=== PATIENT | female | born 1955 | race Caucasian/White ===

== ENCOUNTER 2024-07-05 17:15 | Inpatient (IN) ==
[2024-07-05] MEDS: cefTRIAXone 1 GM VIAL IV ONE (17:57)
[2024-07-05] MEDS: 0.9 % SODIUM CHLORIDE 1,000 ML IV ONE ×2 (17:57→20:31)
[2024-07-05 18:58] LABS: Basophils # (Auto) 0.03 K/mcL (0.00-0.30); Basophils % (Auto) 0.4 % (0.0-2.0); Eosinophils # (Auto) 0.25 K/mcL (0.00-0.70); Eosinophils % (Auto) 3.5 % (0.0-7.0); Hemoglobin 10.6 g/dL (11.2-15.7); Lymphocytes # (Auto) 1.32 K/mcL (1.50-4.80); Lymphocytes % (Auto) 18.4 % (15.5-49.0); Mean Cell Volume 105.1 fL (80.0-100.0); Mean Corpuscular HGB Conc 32.1 g/dL (31.0-36.0); Mean Platelet Volume 13.4 fL (8.8-12.5); Monocytes # (Auto) 0.53 K/mcL (0.10-0.90); Monocytes % (Auto) 7.4 % (1.0-12.0); Neutrophils % (Auto) 70.2 % (38.0-78.0); Platelet Count 225 K/mcL (140-440); RBC 3.14 M/mcL (3.59-5.38); WBC 7.2 K/mcL (4.5-11.0)
[2024-07-05] MEDS: NOREPINEPHRINE 250 ML IV SCH (19:19)
[2024-07-05] MEDS: 0.9 % SODIUM CHLORIDE 250 ML IV SCH (19:21)
[2024-07-05 19:55] LABS: ALT/SGPT 22 U/L (<40); AST/SGOT 26 U/L (<32); Albumin 3.2 gm/dL (3.2-5.2); Albumin/Globulin Ratio 1.2 (1.0-2.3); Alkaline Phosphatase 87 U/L (39-117); Bilirubin,Total < 0.2 mg/dL (0.1-1.0); Blood Urea Nitrogen 63 mg/dL (8-23); Calcium 9.2 mg/dL (8.6-10.4); Carbon Dioxide 12 mmol/L (22-30); Chloride 106 mmol/L (96-108); Globulin 2.6 gm/dL (2.2-3.7); Glomerular Filtration Rate 9; Glucose 112 mg/dL (70-105); Sodium 135 mmol/L (133-145); Thyroid Stimulating Hormone 2.39 uIU/mL (0.27-5.01)
[2024-07-05 21:15] LABS: Appearance,Urine Clear (Clear); Bacteria,Urine Few /hpf (0); Bilirubin,Urine Negative (Negative); Calcium Oxalate Crystals,Urine Mod /hpf; Color,Urine Yellow; Glucose,Urine (UA) Negative (Negative); Ketones,Urine Trace mg/dL (Negative); Leukocyte Esterase,Urine Negative /uL (Negative); Nitrate,Urine Negative (Negative); Protein,Urine 30 mg/dL (Negative); Urine Blood Negative ery/mcL (Negative); Urine RBC 0 /hpf (0-3); Urine Squamous Epithelial Cell 8 /hpf (0-4); Urine WBC 2 /hpf (0-4); Urobilinogen,Urine Normal
[2024-07-05 21:45] LABS: ALT/SGPT 23 U/L (<40); AST/SGOT 26 U/L (<32); Albumin 3.2 gm/dL (3.2-5.2); Albumin/Globulin Ratio 1.3 (1.0-2.3); Alkaline Phosphatase 86 U/L (39-117); Bilirubin,Total < 0.2 mg/dL (0.1-1.0); Blood Urea Nitrogen 64 mg/dL (8-23); Calcium 8.7 mg/dL (8.6-10.4); Carbon Dioxide 13 mmol/L (22-30); Chloride 106 mmol/L (96-108); Globulin 2.5 gm/dL (2.2-3.7); Glomerular Filtration Rate 9; Glucose 128 mg/dL (70-105); Potassium 4.2 mmol/L (3.3-5.1); Sodium 136 mmol/L (133-145)
[2024-07-05 22:18] LABS: Free T4 (Free Thyroxine) 0.74 ng/dL (0.93-1.70)
[2024-07-06] MEDS ORDERED: ACETAMINOPHEN 325 MG TABLET PO PRN (00:39)
[2024-07-06] MEDS: SODIUM BICARBONATE VIAL 150 MEQ in WATER FOR INJECTION,STERILE 850 ML IV SCH ×3 (01:25→15:15)
[2024-07-06] MEDS: 0.9 % SODIUM CHLORIDE 10 ML SYRINGE IV SCH (05:11)
[2024-07-06 06:09] LABS: Albumin 3.3 gm/dL (3.2-5.2); Blood Urea Nitrogen 60 mg/dL (8-23); Calcium 8.7 mg/dL (8.6-10.4); Carbon Dioxide 13 mmol/L (22-30); Chloride 108 mmol/L (96-108); Glomerular Filtration Rate 10; Glucose 137 mg/dL (70-105); Potassium 4.1 mmol/L (3.3-5.1); Sodium 139 mmol/L (133-145)
[2024-07-06 06:34] LABS: Basophils # (Auto) 0.03 K/mcL (0.00-0.30); Basophils % (Auto) 0.4 % (0.0-2.0); Eosinophils # (Auto) 0.29 K/mcL (0.00-0.70); Eosinophils % (Auto) 3.5 % (0.0-7.0); Hemoglobin 10.1 g/dL (11.2-15.7); Lymphocytes % (Auto) 19.2 % (15.5-49.0); Mean Corpuscular HGB Conc 31.6 g/dL (31.0-36.0); Monocytes # (Auto) 0.66 K/mcL (0.10-0.90); Monocytes % (Auto) 7.9 % (1.0-12.0); Neutrophils % (Auto) 68.4 % (38.0-78.0); Platelet Count 213 K/mcL (140-440); RBC 3.02 M/mcL (3.59-5.38); Red Cell Distribution Width 13.9 % (11.5-14.5); WBC 8.3 K/mcL (4.5-11.0)
[2024-07-06] MEDS: HEPARIN 5,000 UNIT/ML VIAL SQ SCH (10:15)
[2024-07-06 14:26] LABS: ABG Methemoglobin 0 % (0.4-1.5); Total Hemoglobin 11.1 gm/Dl (12.0-15.0); VBG Base Excess -7 (-2-3); VBG HCO3 18.5 mmol/L (24.0-28.0); VBG Oxygen Saturation 86.9 % (40.0-70.0); VBG PCO2 36.3 mmHg (41.0-51.0); VBG PH 7.32 U (7.32-7.42); VBG PO2 57.3 mmHg (25.0-40.0); VBG Total CO2 19.6 mmol/L (25.0-29.0)
[2024-07-06 14:42] LABS: Albumin 3.1 gm/dL (3.2-5.2); Calcium 8.7 mg/dL (8.6-10.4); Phosphorous 3.9 mg/dL (2.5-4.5); Potassium 3.8 mmol/L (3.3-5.1)
[2024-07-06] MEDS: busPIRone 15 MG TABLET PO SCH (20:32)
[2024-07-06] MEDS: oxyCODONE/APAP 10/325MG TABLET PO PRN (20:33)
[2024-07-06] MEDS: PREGABALIN 25 MG CAPSULE PO SCH (20:33)
[2024-07-06 20:47] LABS: Blood Urea Nitrogen 50 mg/dL (8-23); Calcium 8.7 mg/dL (8.6-10.4); Carbon Dioxide 19 mmol/L (22-30); Chloride 110 mmol/L (96-108); Glomerular Filtration Rate 20; Glucose 133 mg/dL (70-105); Potassium 3.7 mmol/L (3.3-5.1); Sodium 144 mmol/L (133-145)
[2024-07-06] MEDS: 0.9 % SODIUM CHLORIDE 1,000 ML IV SCH (22:13)
[2024-07-07 05:45] LABS: Basophils # (Auto) 0.04 K/mcL (0.00-0.30); Basophils % (Auto) 0.8 % (0.0-2.0); Eosinophils # (Auto) 0.24 K/mcL (0.00-0.70); Hematocrit 26.9 % (34.1-44.9); Lymphocytes # (Auto) 1.35 K/mcL (1.50-4.80); Lymphocytes % (Auto) 28.3 % (15.5-49.0); Mean Cell Volume 100.7 fL (80.0-100.0); Mean Corpuscular HGB Conc 33.5 g/dL (31.0-36.0); Mean Platelet Volume 12.1 fL (8.8-12.5); Monocytes # (Auto) 0.49 K/mcL (0.10-0.90); Monocytes % (Auto) 10.3 % (1.0-12.0); Neutrophils % (Auto) 55.6 % (38.0-78.0); Platelet Count 194 K/mcL (140-440); RBC 2.67 M/mcL (3.59-5.38); Red Cell Distribution Width 13.7 % (11.5-14.5); WBC 4.8 K/mcL (4.5-11.0)
[2024-07-07 06:44] LABS: Blood Urea Nitrogen 39 mg/dL (8-23); Calcium 8.4 mg/dL (8.6-10.4); Carbon Dioxide 21 mmol/L (22-30); Chloride 112 mmol/L (96-108); Glomerular Filtration Rate 30; Glucose 131 mg/dL (70-105); Phosphorous 3.3 mg/dL (2.5-4.5); Potassium 3.4 mmol/L (3.3-5.1); Sodium 146 mmol/L (133-145)
[2024-07-07] MEDS: LEVOTHYROXINE 50 MCG TABLET PO SCH (07:23)
[2024-07-07] MEDS: ALLOPURINOL 100 MG TABLET PO SCH (09:19)
[2024-07-07] MEDS: ATORVASTATIN 10 MG TABLET PO SCH (09:19)
[2024-07-07] MEDS: PNEUMOCOCCAL 23-VAL P-SAC VAC 0.5 ML SYRINGE IM ONE (09:58)
[2024-07-07] MEDS: FLU VACC TS2024-25(65YR UP)/PF 180 MCG/0.5 ML SYRINGE IM ONE (09:58)
[2024-07-07 12:37] LABS: Blood Urea Nitrogen 35 mg/dL (8-23); Calcium 8.4 mg/dL (8.6-10.4); Carbon Dioxide 20 mmol/L (22-30); Chloride 111 mmol/L (96-108); Glomerular Filtration Rate 38; Glucose 128 mg/dL (70-105); Potassium 3.6 mmol/L (3.3-5.1); Sodium 144 mmol/L (133-145)
[2024-07-07] MEDS ORDERED: IOPAMIDOL 100 ML BOTTLE IV ONE (14:51)
[2024-07-07] MEDS: MIDODRINE 5 MG TABLET PO SCH (18:45)
[2024-07-07] MEDS: DOCUSATE SODIUM 100 MG CAPSULE PO SCH (21:30)
[2024-07-07] MEDS: SENNOSIDES/DOCUSATE SODIUM 1 TAB TABLET PO PRN (21:31)
[2024-07-08 05:21] LABS: Basophils # (Auto) 0.05 K/mcL (0.00-0.30); Basophils % (Auto) 1.2 % (0.0-2.0); Eosinophils # (Auto) 0.26 K/mcL (0.00-0.70); Eosinophils % (Auto) 6.3 % (0.0-7.0); Hemoglobin 8.6 g/dL (11.2-15.7); Lymphocytes # (Auto) 1.65 K/mcL (1.50-4.80); Mean Cell Volume 103.6 fL (80.0-100.0); Mean Corpuscular HGB Conc 33.1 g/dL (31.0-36.0); Mean Platelet Volume 11.8 fL (8.8-12.5); Monocytes # (Auto) 0.46 K/mcL (0.10-0.90); Monocytes % (Auto) 11.2 % (1.0-12.0); Neutrophils % (Auto) 41.1 % (38.0-78.0); Platelet Count 191 K/mcL (140-440); RBC 2.51 M/mcL (3.59-5.38); Red Cell Distribution Width 14.2 % (11.5-14.5); WBC 4.1 K/mcL (4.5-11.0)
[2024-07-08 06:23] LABS: Albumin 2.8 gm/dL (3.2-5.2); Blood Urea Nitrogen 21 mg/dL (8-23); Calcium 8.4 mg/dL (8.6-10.4); Carbon Dioxide 23 mmol/L (22-30); Chloride 112 mmol/L (96-108); Glomerular Filtration Rate 51; Glucose 111 mg/dL (70-105); Phosphorous 2.3 mg/dL (2.5-4.5); Potassium 3.7 mmol/L (3.3-5.1); Sodium 145 mmol/L (133-145)
[2024-07-08] MEDS: MIDODRINE 5 MG TABLET PO SCH (08:01)
[2024-07-08] MEDS: FUROSEMIDE 40 MG/4 ML VIAL IV SCH (10:58)
[2024-07-08 15:08] LABS: Hemoglobin A1C 6.2 % Hgb (4.0-6.0)
[2024-07-08] MEDS ORDERED: DEXTROSE 50% 50 ML VIAL IV PRN (20:08)
[2024-07-09 06:02] LABS: Basophils # (Auto) 0.05 K/mcL (0.00-0.30); Basophils % (Auto) 1.1 % (0.0-2.0); Eosinophils # (Auto) 0.26 K/mcL (0.00-0.70); Eosinophils % (Auto) 5.8 % (0.0-7.0); Hematocrit 27.1 % (34.1-44.9); Hemoglobin 8.6 g/dL (11.2-15.7); Lymphocytes # (Auto) 1.76 K/mcL (1.50-4.80); Lymphocytes % (Auto) 39.3 % (15.5-49.0); Mean Cell Volume 105.9 fL (80.0-100.0); Mean Corpuscular HGB Conc 31.7 g/dL (31.0-36.0); Mean Platelet Volume 12.1 fL (8.8-12.5); Monocytes # (Auto) 0.45 K/mcL (0.10-0.90); Neutrophils % (Auto) 43.1 % (38.0-78.0); Platelet Count 203 K/mcL (140-440); RBC 2.56 M/mcL (3.59-5.38); Red Cell Distribution Width 14.4 % (11.5-14.5); WBC 4.5 K/mcL (4.5-11.0)
[2024-07-09 06:24] LABS: ALT/SGPT 20 U/L (<40); AST/SGOT 25 U/L (<32); Albumin 2.9 gm/dL (3.2-5.2); Albumin/Globulin Ratio 1.3 (1.0-2.3); Alkaline Phosphatase 68 U/L (39-117); Bilirubin,Direct < 0.2 mg/dL (0-0.3); Bilirubin,Total 0.2 mg/dL (0.1-1.0); Blood Urea Nitrogen 17 mg/dL (8-23); Calcium 8.5 mg/dL (8.6-10.4); Carbon Dioxide 23 mmol/L (22-30); Chloride 106 mmol/L (96-108); Globulin 2.3 gm/dL (2.2-3.7); Glomerular Filtration Rate 51; Glucose 111 mg/dL (70-105); Lactate Dehydrogenase 228 U/L (135-225); Phosphorous 2.3 mg/dL (2.5-4.5); Potassium 3.5 mmol/L (3.3-5.1); Sodium 141 mmol/L (133-145); Triglycerides 179 mg/dL (<150); Uric Acid 5.4 mg/dL (2.5-8.0)
[2024-07-09] MEDS: MAGNESIUM SULFATE 2 GM/50 ML BAG IV SCH (08:33)
[2024-07-09] MEDS: FOLIC ACID 1 MG TABLET PO SCH (11:30)
[2024-07-09] MEDS: MIDODRINE 5 MG TABLET PO SCH (16:54)
[2024-07-09] MEDS: MELATONIN 3 MG TABLET PO SCH (18:50)
[2024-07-09] MEDS: diphenhydrAMINE 25 MG CAPSULE PO PRN (20:52)
[2024-07-10 06:43] LABS: Hematocrit 28.1 % (34.1-44.9)
[2024-07-10 06:58] LABS: ALT/SGPT 25 U/L (<40); AST/SGOT 32 U/L (<32); Albumin 3.1 gm/dL (3.2-5.2); Albumin/Globulin Ratio 1.4 (1.0-2.3); Alkaline Phosphatase 71 U/L (39-117); Bilirubin,Direct < 0.2 mg/dL (0-0.3); Bilirubin,Total 0.3 mg/dL (0.1-1.0); Blood Urea Nitrogen 13 mg/dL (8-23); Calcium 9.2 mg/dL (8.6-10.4); Carbon Dioxide 26 mmol/L (22-30); Chloride 105 mmol/L (96-108); Globulin 2.2 gm/dL (2.2-3.7); Glomerular Filtration Rate 57; Glucose 134 mg/dL (70-105); Lactate Dehydrogenase 258 U/L (135-225); Phosphorous 2.5 mg/dL (2.5-4.5); Potassium 3.9 mmol/L (3.3-5.1); Sodium 141 mmol/L (133-145); Triglycerides 193 mg/dL (<150)
[2024-07-10] MEDS: FOLIC ACID 1 MG TABLET PO SCH (08:18)
[2024-07-11 07:11] LABS: Homocysteine 24.7 umol/L (0.0-17.2)
== END 2024-07-11 11:05 | disposition home or self-care (01) | DRG 682 ==
LOC: ED 17:15 → ICU 07-06 00:18
PROVIDERS: ADMIT Internal Medicine; ATTEND Internal Medicine